=== PATIENT | male | born 1990 | race Caucasian/White ===

== ENCOUNTER 2018-07-30 14:26 | Emergency (ER) | payer OTHER ==
[~2018-07-30] VITALS: Ht 185.4 cm; Wt 71.2 kg
[2018-07-30 14:40] VITALS: Ht 185.4 cm; Wt 71.2 kg
[2018-07-30 16:35] VITALS: BP 157/81
== END 2018-07-30 16:35 | disposition home or self-care (01) ==
LOC: ED 14:26
DX: S66.394A Other injury of extensor muscle, fascia and tendon of right ring finger at wrist and hand level, initial encounter (principal); W31.9XXA Contact with unspecified machinery, initial encounter; Y93.89 Activity, other specified; Y92.89 Other specified places as the place of occurrence of the external cause; Y99.8 Other external cause status
CPT/HCPCS: 90715; J2001; J3490